=== PATIENT | female | born 2000 | race Asian ===

== ENCOUNTER 2022-04-17 17:15 | Emergency (ER) | payer OTHER, BC ==
[2022-04-17] MEDS ORDERED: Ondansetron ODT 4 MG TAB ONE ×2 (17:59→18:34)
[2022-04-17] MEDS ORDERED: Ibuprofen 200 MG TAB ONE (18:00)
== END 2022-04-17 19:21 | disposition home or self-care (01) ==
LOC: CSHERS 17:15
DX: S90.32XA Contusion of left foot, initial encounter (principal); V23.4XXA Motorcycle driver injured in collision with car, pick-up truck or van in traffic accident, initial encounter; Z87.442 Personal history of urinary calculi
CPT/HCPCS: 70450; G0390; Q0162

== ENCOUNTER 2022-06-27 21:21 | Emergency (ER) | payer OTHER, BC ==
[2022-06-27] MEDS ORDERED: Bacitracin 1 PK ONE (22:41)
[2022-06-28] MEDS ORDERED: Ibuprofen 200 MG TAB ONE (00:21)
== END 2022-06-28 00:19 | disposition home or self-care (01) ==
LOC: CSHERS 21:21
DX: S09.90XA Unspecified injury of head, initial encounter (principal); S50.312A Abrasion of left elbow, initial encounter; M25.552 Pain in left hip; V09.9XXA Pedestrian injured in unspecified transport accident, initial encounter
CPT/HCPCS: 70450; 72125